=== PATIENT | male | born 1955 | race Caucasian/White ===

== ENCOUNTER → 2021-05-13 08:48 | Outpatient (CLI) | payer MEDICARE, SELFPAY ==
--- NOTE | 2021-05-13 | DI.MRI.S_ITS ---
PROCEDURE: MR FOOT RT WO/W CON INDICATIONS: GANGLION, RIGHT ANKLE AND FOOT TECHNIQUE: Noncontrast coronal T1 spin echo and STIR, sagittal T1 spin echo with fat saturation and STIR, axial T1 spin echo and T2 fast spin echo with fat saturation. After the administration of contrast, axial/sagittal/coronal T1 spin echo with fat saturation through the right foot. COMPARISON: None. FINDINGS: Image quality: Excellent. Bones: There is no fracture or dislocation.. Ehyp-ok-alhrllif midfoot and forefoot joint osteoarthritic changes are seen more prominent at 1st MTP joint, 3rd and 4th TMT joints. No suspicious intraosseous lesion. No abnormal intraosseous enhancement. Soft tissues: Lobulated T2 hyperintense and T1 hypointense signal structure involving plantar soft tissue of great toe at the level of 1st distal phalanx and 1st interphalangeal joint is seen and measures up to 2.3 x 2.2 x 1.5 cm in size. Multiple internal septations are seen. After IV contrast infusion, there is mild peripheral and septal enhancement. No internal solid component is identified. The scanned muscles demonstrate normal overall bulk and internal signal. No other soft tissue mass or area of abnormal enhancement is noted. IMPRESSION: 1. 2.3 x 2.2 x 1.5 cm lobulated and septated cystic lesion involving plantar soft tissue of 1st toe at the level of 1st distal phalanx and 1st interphalangeal joint. No definite internal solid component is identified. Finding may septated ganglion cyst. Other cystic neoplasm cannot be excluded. Consider excision for more definitive diagnosis. 2. No other soft tissue mass or fluid collection is seen. Tendons and ligaments of midfoot and forefoot are grossly intact. 3. 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 No fracture or dislocation. No abnormal intraosseous enhancement. Dictated by: Ke Hernandez M.D. on 05/13/2021 at 11:36 Approved by: Ke Hernandez M.D. on 05/13/2021 at 11:40
== END ==
PROVIDERS: PCP Internal Medicine; Referring Provider Podiatrist; Visit Provider Podiatrist
DX: M67.471 Ganglion, right ankle and foot (principal); M19.071 Primary osteoarthritis, right ankle and foot
CPT/HCPCS: 73720; A9579